=== PATIENT | male | born 1975 | race Caucasian/White ===

== ENCOUNTER 2021-01-27 15:32 | Inpatient (IN) | payer BC ==
[~2021-01-27] VITALS: Ht 182.9 cm; Wt 137.8 kg
[~2021-01-27 15:32] MED LIST: ATOR40TA59 PO; GLYB5TAB3 PO; INSU100I17 SQ; LISI20TA18 PO; METF10007 PO; OMEP20CA16 PO
[2021-01-27] MEDS ORDERED: IV NORMAL SALINE 1000ML BAG 1,000 ML IV SCH (16:00)
[2021-01-27] MEDS ORDERED: VANCOMYCIN PER PHARMACY MC ONE (16:00)
--- NOTE | 2021-01-27 16:05 | PHYS DOC ---
Past Medical History Past Medical History: Diabetes-Type II, High Cholesterol, Hypertension Past Surgical History: Cholecystectomy Alcohol Use: Occasionally Drug Use: None General Adult EDM: Chief Complaint: GROIN PAIN HPI: HPI: Patient is a 45 year old male who presents with 4 to 5 days of right upper thigh redness and burning type pain that is growing rapidly. He states he had some cellulitis on his right calf that he was on cephalexin for and he has been off of the cephalexin for the past week. He states that he just got rehired on at [employer] after being laid off for 2 years. He states in that time he had not been seen by a physician but had been vomiting insulin from [employer] and trying to keep track of his blood sugars. He states they have been running in the 300s. He states that he has an appointment now at [facility] this month to reestablish care. He has a history of diabetes, hypertension, high cholesterol and cholecystectomy. When he is laying still he states he has no pain but when he is up and walking he states it is painful. Patient denies chest pain, shortness of air, dizziness, headache, fever, chills, abdominal pain, nausea, vomiting, diarrhea, cough, numbness or tingling, focal weakness. He is Covid vaccinated. Review of Systems: Review of Systems: Constitutional: Denies fever or chills. [] Eyes: Denies change in visual acuity. [] HENT: Denies nasal congestion or sore throat. [] Respiratory: Denies cough or shortness of breath. [] Cardiovascular: Denies chest pain or edema. [] GI: Denies abdominal pain, nausea, vomiting, bloody stools or diarrhea. [] : Denies dysuria. [] Musculoskeletal: Denies back pain or joint pain. + Right upper leg pain [] Integument: Denies rash. + Right upper thigh cellulitis [] Neurologic: Denies headache, focal weakness or sensory changes. [] Endocrine: Denies polyuria or polydipsia. [] Lymphatic: Denies swollen glands. [] Psychiatric: Denies depression or anxiety. [] Heart Score: C/O Chest Pain: No Risk Factors: Risk Factors: DM, Current or recent (<one month) smoker, HTN, HLP, family history of CAD, obesity. Risk Scores: Score 0 - 3: 2.5% MACE over next 6 weeks - Discharge Home Score 4 - 6: 20.3% MACE over next 6 weeks - Admit for Clinical Observation Score 7 - 10: 72.7% MACE over next 6 weeks - Early Invasive Strategies Allergies: Allergies: Allergies Coded Allergies Type Severity Reaction Last Updated Verified Penicillins Allergy rash 05/25/13 Yes Physical Exam: PE: Constitutional: Well developed, well nourished, no acute distress, non-toxic appearance. [] HENT: Normocephalic, atraumatic, bilateral external ears normal, oropharynx moist, no oral exudates, nose normal. [] Eyes: PERRLA, EOMI, conjunctiva normal, no discharge. [] Neck: Normal range of motion, no tenderness, supple, no stridor. [] Cardiovascular:Heart rate regular rhythm, no murmur [] Lungs & Thorax: Bilateral breath sounds clear to auscultation [] Abdomen: Bowel sounds normal, soft, no tenderness, no masses, no pulsatile masses. [] Skin: Warm, dry, right upper thigh swelling and erythema, no rash. [] Back: No tenderness, no CVA tenderness. [] Extremities: Right upper thigh tenderness, no cyanosis, no clubbing, ROM intact, 1+ edema. [] Neurologic: Alert and oriented X 3, normal motor function, normal sensory function, no focal deficits noted. [] Psychologic: Affect normal, judgement normal, mood normal. [] EKG: EK and read by Dr Aquino as Sinus Rhythm and no STEMI Radiology/Procedures: Radiology/Procedures: [] Impression: [facility] [address] [place] [address] IMAGING REPORT Signed PATIENT: SACHI LEBLANC ACCOUNT: [id number] : 1975 LOCATION: [facility] AGE: 45 SEX: M EXAM STATUS: ADM IN ORD. PHYSICIAN: ZINA SHORT APRN REASON: TACHYCARDIA PROCEDURE: PORTABLE CHEST 1V Exam: Chest one view INDICATION: Tachycardia TECHNIQUE: Frontal view of the chest Comparisons: 05/25/2013 FINDINGS: The cardiomediastinal silhouette and pulmonary vessels are within normal limits. The lung and pleural spaces are clear. IMPRESSION: No acute cardiopulmonary process. Electronically signed by: Ryan Prakash MD (01/27/2021 6:36 PM) [facility] DICTATED and SIGNED BY: RYAN PRAKASH MD DATE: 01/27/21 [id number] [facility] [address] [place] [address] IMAGING REPORT Signed PATIENT: SACHI LEBLANC ACCOUNT: [id number] : 1975 LOCATION: [address] [place] [address] AGE: 45 SEX: M EXAM STATUS: ADM IN ORD. PHYSICIAN: ZINA SHORT APRN REASON: swelling, pain PROCEDURE: VENOUS LOWER EXT BILATERAL Bilateral lower extremity venous duplex study 01/27/2021 Clinical History: Right groin lump. Redness upper thigh.. Technique: Using a combination of real time ultrasound imaging and color-flow and pulse Doppler imaging techniques along with graded compression and augmentation, duplex evaluation of the deep venous system of the both lower extremities was performed. Multiple images were obtained. Findings: There is no sonographic evidence of deep venous thrombosis involving the visualized deep venous structures of either lower extremity. Enlarged lymph nodes are seen in the right inguinal region which measure 1.3 to 2.7 cm in size. This likely represents a lymphadenitis. IMPRESSION: 1. There is no sonographic evidence of deep venous thrombosis involving the visualized deep venous structures of either lower extremity. 2. Enlarged right inguinal lymph nodes are seen which likely reflects a lymphadenitis. Electronically signed by: Piter Benitez MD (01/27/2021 6:26 PM) [id number] DICTATED and SIGNED BY: PITER BENITEZ MD DATE: 01/27/21 [id number] Course & Med Decision Making: Course & Med Decision Making Pertinent Labs and Imaging studies reviewed. (See chart for details) See HPI. Alert and oriented x4. Ambulatory with steady gait. Skin pink warm and dry. Pedal pulses are present. Cap refill less than 2 seconds. Lungs are clear in upper lobes and diminished in lower lobes. Large area of right medial upper thigh that covers half of the dorsal thigh and around to the posterior half of thigh redness and induration. Tenderness and hot to touch. [] Dragon Disclaimer: Dragon Disclaimer: This electronic medical record was generated, in whole or in part, using a voice recognition dictation system. Departure Departure Impression: Primary Impression: Cellulitis Qualified Codes: L03.115 - Cellulitis of right lower limb Additional Impression: Hyperglycemia Disposition: 09 ADMITTED INPATIENT Admitting Physician: KARTHIK Condition: STABLE Referrals: JEREMY MARTINEZ MD (PCP) ZINA SHORT APRN Jan 27, 2021 16:05
[2021-01-27] MEDS ORDERED: VANCOMYCIN 2 GM in IV NORMAL SALINE 500ML BAG 500 ML IV ONE (16:30)
[2021-01-27 16:33] LABS: BASO # 0.1 x10^3/uL (0.0-0.2); BASO % 0 % (0-3); EOS # 0.1 x10^3/uL (0.0-0.7); EOS % 0 % (0-3); HEMATOCRIT 36.6 % (39.0-53.0); HEMOGLOBIN 12.5 g/dL (13.0-17.5); LYMPH # 1.9 x10^3/uL (1.0-4.8); LYMPH % 9 % (24-48); MEAN CORPUSCULAR HEMOGLOBIN 31 pg (25-35); MEAN CORPUSCULAR HGB CONC 34 g/dL (31-37); MEAN CORPUSCULAR VOLUME 89 fL (79-100); MONO # 1.4 x10^3/uL (0.0-1.1); MONO % 6 % (0-9); NEUT % 84 % (31-73); PLATELET COUNT 314 x10^3/uL (140-400); RED CELL DISTRIBUTION WIDTH 12.4 % (11.5-14.5); WHITE BLOOD COUNT 21.4 x10^3/uL (4.0-11.0)
[2021-01-27 16:46] LABS: CALCIUM 8.8 mg/dL (8.5-10.1); CREATININE 1.3 mg/dL (0.7-1.3); GFR 59.7; POTASSIUM 5.1 mmol/L (3.5-5.1)
[2021-01-27 16:54] LABS: % BANDS 4 % (0-9); % BASOS 1 % (0-3); % LYMPHS 12 % (24-48); % MONOS 3 % (0-10); % SEGS 80 % (35-66); ALBUMIN 2.9 g/dL (3.4-5.0); ALBUMIN/GLOBULIN RATIO 0.7 (1.0-1.7); PLT ESTIMATE ADEQUATE (ADEQUATE); TOTAL BILIRUBIN 0.4 mg/dL (0.2-1.0); TOTAL PROTEIN 6.9 g/dL (6.4-8.2)
[2021-01-27] MEDS ORDERED: INSULIN REGULAR 100 UNIT/ML 3ML VIAL. IV ONE (17:00)
[2021-01-27 17:07] LABS: C-REACTIVE PROTEIN 322.9 mg/L (0-3.3)
[2021-01-27 17:12] LABS: BASE EXCESS ABG 3 mmol/L (-3-3); HCO3 ABG 26 mmol/L (21-28); PCO2 ABG 35 mmHg (35-46); PO2 ABG 71 mmHg (75-108); SAT O2 ABG 95 % (92-99)
[2021-01-27 17:13] LABS: FIO2 ABG 21%
--- NOTE | 2021-01-27 17:27 | EKG ---
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
[2021-01-27] MEDS ORDERED: ACETAMINOPHEN 325 MG TABLET. PO PRN (17:30)
[2021-01-27] MEDS ORDERED: ONDANSETRON PF 4 MG/2 ML VIAL. IVP PRN (17:30)
--- NOTE | 2021-01-27 18:29 | RAD ---
Bilateral lower extremity venous duplex study 01/27/2021 Clinical History: Right groin lump. Redness upper thigh.. Technique: Using a combination of real time ultrasound imaging and color-flow and pulse Doppler imagi ng techniques along with graded compression and augmentation, duplex evaluation of the deep venous sy stem of the both lower extremities was performed. Multiple images were obtained. Findings: There is no sonographic evidence of deep venous thrombosis involving the visualized deep ve nous structures of either lower extremity. Enlarged lymph nodes are seen in the right inguinal region which measure 1.3 to 2.7 cm in size. This likely represents a lymphadenitis. IMPRESSION: 1. There is no sonographic evidence of deep venous thrombosis involving the visualized deep venous st ructures of either lower extremity. 2. Enlarged right inguinal lymph nodes are seen which likely reflects a lymphadenitis. Electronically signed by: Piter Benitez MD (01/27/2021 6:26 PM) [id number]
[2021-01-27] MEDS: fentaNYL PF VIAL 100 MCG/2 ML VIAL IVP PRN ×2 (18:34→21:14)
--- NOTE | 2021-01-27 18:38 | RAD ---
Exam: Chest one view INDICATION: Tachycardia TECHNIQUE: Frontal view of the chest Comparisons: 05/25/2013 FINDINGS: The cardiomediastinal silhouette and pulmonary vessels are within normal limits. The lung and pleural spaces are clear. IMPRESSION: No acute cardiopulmonary process. Electronically signed by: Ryan Byrne MD (01/27/2021 6:36 PM) KYE
--- NOTE | 2021-01-27 20:27 | NUR ---
The patient, SACHI LEBLANC, 45 y/o, M admitted by MARCIAL CLANCY MD, was given written information regarding hospital policies, unit procedures and contact persons. Valuables were checked and left with him.
[2021-01-27 20:41] VITALS: BP 157/70
[2021-01-27] MEDS ORDERED: DEXTROSE 50% 25 GM / 50ML DISP.SYRIN. IV PRN (20:45)
[2021-01-27] MEDS: INSULIN LISPRO 300 UNITS/3 ML VIAL. SQ SCH (21:13)
[2021-01-27 23:16] VITALS: BP 144/65
[2021-01-27] MEDS ORDERED: VANCOMYCIN PER PHARMACY MC PRN (23:45)
--- NOTE | 2021-01-28 01:13 | EKG ---
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
--- NOTE | 2021-01-28 01:17 | NUR ---
Pharmacy Vancomycin Dosing Note S:Consulted to monitor and dose vancomycin started 01/27/21. O:SACHI LEBLANC is a 45 year old M with Cellulitis . Height: 6 feet, 0 inches Weight: 137.6 kg [place] Body Weight: 77.60 Adjusted Body Weight: 101.60 Dosing Weight: Actual Other Antibiotics: LABS: Last BUN: 12 Last Creatinine: 1.3 Creatinine Clearance: >100 mL/min Last WBC: 21.4 Last Procalcitonin: - Tmax (past 24 hours): 99.7 Microbiology: 01/27 BCX PENDING I/O: Drug Levels: Last level: on at Last dose given 01/27/21 at 1630 Vancomycin Dosing: Loading Dose: x1 Dosing Weight: Actual Target Trough: 10-20 A: Based on: WEIGHT, RENAL FUNCTION AND INFECTION TYPE/SEVERITY (CELLULITIS) P: 1. INITIATE Vancomycin 2000 mg IV q12h 2. Follow up Trough level on 01/29/21 at 1630 3. Pharmacy will continue to monitor, follow and adjust therapy as needed. [facility], 01/28/21 0117
[2021-01-28] MEDS: fentaNYL PF VIAL 100 MCG/2 ML VIAL IVP PRN ×7 (01:32→12:32)
[2021-01-28 03:07] VITALS: BP 169/58
[2021-01-28] MEDS ORDERED: VANCOMYCIN 2 GM in IV NORMAL SALINE 500ML BAG 500 ML IV SCH (04:30)
[2021-01-28 07:00] VITALS: BP 134/72
[2021-01-28] MEDS: INSULIN LISPRO 300 UNITS/3 ML VIAL. SQ SCH ×6 (07:30→20:31)
[2021-01-28] MEDS: LACTOBACILLUS RHAMNOSUS GG 1 CAPSULE. PO SCH ×2 (08:30→20:01)
--- NOTE | 2021-01-28 08:31 | CONS ---
DATE OF CONSULTATION: 01/28/2021 REQUESTING PHYSICIAN: Dr. Rushing. REASON FOR CONSULTATION: Right leg cellulitis and right inguinal mass. HISTORY OF PRESENT ILLNESS: This is a 45-year-old gentleman with history of diabetes who has had cellulitis as he was diagnosed in the urgent care about a week or two ago. He had redness in the leg and the calf. The patient says at that time he received Keflex and the redness improved, but he started having pain in the right inguinal area and he felt like it was getting better, but then he played with his kid, he fell and was wrestling and the pain got worse, hence he decided to come in. The patient is noted to have low-grade fever and leukocytosis. The patient has been started on vancomycin and consult has been requested. The patient denies any nausea, vomiting, diarrhea, chest pain, shortness of breath, abdominal pain, urinary symptoms or bowel symptoms. Denies any headache or visual symptoms. PAST MEDICAL HISTORY: Positive for diabetes mellitus, hypertension, hyperlipidemia, obesity, glaucoma, gastroesophageal reflux disease and joint replacement done, diabetes. SOCIAL HISTORY: Positive for smoking. No alcohol use or drug use. ALLERGIES: LISTED ALLERGIC TO PENICILLIN A CHILD. He does not know what happened, but admits to have taken Augmentin and amoxicillin without any problem. REVIEW OF SYSTEMS: As in HPI. All other systems reviewed are negative. CURRENT MEDICATIONS: Reviewed. PHYSICAL EXAMINATION: GENERAL: Alert, oriented gentleman, not in distress. VITAL SIGNS: Temperature max is 99.7, pulse 86, respirations 18, blood pressure 134/72. HEENT: Both pupils are round and reacting. No conjunctival lesion, no lesion in the mouth. NECK: Supple, no JVP, no lymphadenopathy. LUNGS: Clear. HEART: S1, S2 regular. ABDOMEN: Soft, nontender, no organomegaly. EXTREMITIES: Right lower extremity, very faint redness present, almost gone. He does have a large lump into the right inguinal area, which is tender. There is no redness there. There is no open area. NEUROLOGIC: The patient is alert, awake, and appropriate. No focal neurologic deficit. LABORATORY DATA: White count is 21.4. Sed rate is 103. BUN and creatinine is normal. Blood sugar has been high. CRP is 322. Acetone negative. COVID negative. X-ray of the chest is unremarkable. Lower extremity ultrasound done which was negative for DVT. Enlarged right inguinal lymph nodes are seen. IMPRESSION: 1. Right lower extremity cellulitis. 2. Right inguinal lymphadenopathy. This lump is too large for this lymph node to be there, although ultrasound suggests that his lymph node, we will treat as it is. 3. Diabetes. 4. Hypertension. 5. Leukocytosis. 6. Fever. RECOMMENDATIONS: Recommend change vancomycin to Rocephin. Supportive care. We will follow as the course of the illness. Might need further testing if it does not improve. Thank you very much, Dr. Rushing, for giving me opportunity to participate in this patient's care. MAR DR: Rd TID: [id number]
[2021-01-28] MEDS: LINEZOLID 600 MG TABLET PO SCH ×2 (08:43→20:01)
[2021-01-28] MEDS ORDERED: INSULIN LISPRO 300 UNITS/3 ML VIAL. SQ ONE (08:45)
[2021-01-28] MEDS: cefTRIAXone IV Push 2 GM VIAL. IVP SCH (09:53)
[2021-01-28 11:23] VITALS: BP 143/79
[2021-01-28] MEDS ORDERED: DEXTROSE 50% 25 GM / 50ML DISP.SYRIN. IV PRN (11:30)
--- NOTE | 2021-01-28 11:32 | NUR ---
Nurse's note: The patient had nausea and vomiting while ceftriaxone was being administered. He did not complain of shortness of breath, pruritus or weakness. This nurse discussed with the patient that the symptoms could be a side effect of the medicine. Dr. Chalo Tucker was informed of the reaction. Plan to give premedication before administering the next dose.
--- NOTE | 2021-01-28 14:01 | PDOC1 ---
History and Physical Date of Service: DOS: DATE: 01/28/21 TIME: 13:52 Chief Complaint: Problems: (1) Type 2 diabetes mellitus (2) Cellulitis (3) Hyperglycemia Chief Complain: Right lower extremity swelling History of Present Illness: HPI: Patient is a 45-year-old white male who presented to the emergency room overnight to right groin and thigh pain and erythema. 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 About 2 weeks ago noticed pain and redness in his right lower extremity. He was also having cough around the then. Went to an urgent care was diagnosed with cellulitis and treated with Keflex. Negative for Covid and influenza during that visit according to the patient. Initially improved with the Keflex. However about 3 to 5 days ago he started having swelling in his right groin. It worsened over the next few days and he was in the emergency room overnight. He was diagnosed with cellulitis and started on IV antibiotics. Patient has a history of type 2 diabetes. Due to losing his insurance he has not regularly seen a doctor over the past 2 years. He would by [facility] from [facility] to try to keep up the sugars but said they still frequently ran in the 300s. Does endorse neuropathy. Does perform foot checks and no wounds that he has ever noticed. Past Medical/Surgical History: PMH/PSH: Diabetes type 2, hypertension, hyperlipidemia Allergies: Allergies: Coded Allergies: Penicillins (Verified Allergy, Intermediate, rash, 01/27/21) Family History: Family History: Noncontributory Social History: Social History: Denies alcohol tobacco or drug use Current Medications: Current Medications Current Medications Vancomycin HCl (Vanco Per Pharmacy) 1 each 1X ONCE MC ; Start 01/27/21 at 16:00; Stop 01/27/21 at 16:01; Status DC Sodium Chloride 1,000 ml @ 1,000 mls/hr Q1H IV Last administered on 01/27/21at 16:28; Start 01/27/21 at 16:00; Stop 01/27/21 at 16:59; Status DC Vancomycin HCl 2 gm/Sodium Chloride 500 ml @ 250 mls/hr 1X ONCE IV Last administered on 01/27/21at 16:28; Start 01/27/21 at 16:30; Stop 01/27/21 at 18:29; Status DC Insulin Human Regular (HumuLIN R VIAL) 10 unit 1X ONCE IV Last administered on 01/27/21at 17:25; Start 01/27/21 at 17:00; Stop 01/27/21 at 17:09; Status DC Ondansetron HCl (Zofran) 4 mg PRN Q8HRS PRN IVP NAUSEA/VOMITING; Start 01/27/21 at 17:30; Stop 01/28/21 at 17:29 Fentanyl Citrate (Fentanyl 2ml Vial) 50 mcg PRN Q1HR PRN IVP PAIN Last administered on 01/28/21at 12:32; Start 01/27/21 at 17:30; Stop 01/28/21 at 13:41; Status DC Acetaminophen (Tylenol) 650 mg PRN Q4HRS PRN PO FEVER > 100.3'F; Start 01/27/21 at 17:30; Stop 01/28/21 at 17:29 Insulin Human Lispro (HumaLOG) 0-5 UNITS QIDACHS SQ Last administered on 01/27/21at 21:13; Start 01/27/21 at 21:00; Stop 01/28/21 at 11:22; Status DC Dextrose (Dextrose 50%-Water Syringe) 12.5 gm PRN Q15MIN PRN IV SEE COMMENTS; Start 01/27/21 at 20:45; Stop 01/28/21 at 11:22; Status DC Vancomycin HCl 2 gm/Sodium Chloride 500 ml @ 250 mls/hr Q12H IV Last administered on 01/28/21at 03:27; Start 01/28/21 at 04:30; Stop 01/28/21 at 08:16; Status DC Vancomycin HCl (Vancomycin Trough Level) 1 each 1X ONCE MC ; Start 01/29/21 at 16:00; Stop 01/29/21 at 16:01; Status Cancel Vancomycin HCl (Vanco Per Pharmacy) 1 each PRN DAILY PRN MC SEE COMMENTS Last administered on 01/28/21at 01:16; Start 01/27/21 at 23:45; Stop 01/28/21 at 08:21; Status DC Lactobacillus Rhamnosus (Culturelle) 1 cap BID PO Last administered on 01/28/21at 08:30; Start 01/28/21 at 09:00 Ceftriaxone Sodium (Rocephin) 2 gm Q24H IVP Last administered on 01/28/21at 09:53; Start 01/28/21 at 09:00 Linezolid (Zyvox) 600 mg BID PO Last administered on 01/28/21at 08:43; Start 01/28/21 at 09:00 Insulin Human Lispro (HumaLOG) 10 units 1X ONCE SQ Last administered on 01/28/21at 08:48; Start 01/28/21 at 08:45; Stop 01/28/21 at 08:46; Status DC Atorvastatin Calcium (Lipitor) 40 mg HS PO ; Start 01/28/21 at 21:00 Lisinopril (Prinivil) 20 mg DAILY PO ; Start 01/29/21 at 09:00 Pantoprazole Sodium (Protonix) 40 mg DAILYAC PO ; Start 01/29/21 at 07:30 Insulin Glargine (Lantus Syringe) 20 unit QHS SQ ; Start 01/28/21 at 21:00 Insulin Human Lispro (HumaLOG) 0-9 UNITS TIDWMEALS SQ Last administered on 01/28/21at 12:26; Start 01/28/21 at 12:00 Dextrose (Dextrose 50%-Water Syringe) 12.5 gm PRN Q15MIN PRN IV SEE COMMENTS; Start 01/28/21 at 11:30 Insulin Human Lispro (HumaLOG) 10 units TIDWMEALS SQ Last administered on 01/28/21at 12:25; Start 01/28/21 at 12:00 Active Scripts Active Reported Omeprazole 20 Mg Capsule.dr 20 Mg PO DAILY07 Atorvastatin Calcium 40 Mg Tablet 40 Mg PO HS Lisinopril 20 Mg Tablet 20 Mg PO DAILY Metformin Hcl 1,000 Mg Tablet 1,000 Mg PO BID Glyburide 5 Mg Tablet 4 Mg PO DAILY08 Novolog Flexpen (Insulin Aspart) 100 Unit/1 Ml Insuln.pen 100 Unit SQ BIDBFRMEAL PRN Novolog Flexpen (Insulin Aspart) 100 Unit/1 Ml Insuln.pen 100 Unit SQ BIDBFRMEAL PRN ROS: Review of Systems Review of System Negative unless noted in HPI Physical Exam: Vital Signs: Vital Signs Date Time Temp Pulse Resp B/P (MAP) Pulse Ox O2 Delivery O2 Flow Rate FiO2 01/28/21 13:10 19 94 Room Air 01/28/21 11:23 97.9 80 143/79 (100) 97.9 Physcial Exam: GEN: No apparent distress. Alert and oriented HEENT: Normal cephalic, atraumatic, external auditory canals are patent EYES: Extraocular muscles are intact, pupil are equally round and reactive to light and accommodation MUSCULOSKELETAL: Well developed , well nourished, good range of motion ENDOCRINE: No thyromegaly was palpated LYMPHATICS: No cervical chain or axillary nodes were noted HEMATOPOIETIC: No bruising NECK: Supple, no JVD, no thyromegaly was noted LUNGS: Clear to auscultation in all lung [place] without rhonchi or wheezing HEART: RRR, S!, S2 present. Peripheral pulses intact, no obvious murmurs noted ABDOMEN: Soft, nontender. Positive bowel sounds, no organomegaly, normal bowel sounds EXTREMITIES: Right groin with large tender immobile mass, very tender to palpation erythematous NEUROLOGIC: Normal speech and tone. A&O x 3, moves all extremities, no obvious focal deficits PSYCHIATRIC: Normal affect, normal mood. Stable SKIN: No ulcerations or rashes, good skin turgor, no jaundice VASCULAR: Good capillary refill, neurovascular bundle appears to be intact Labs: Labs: Laboratory Tests Test 01/27/21 16:13 01/27/21 17:10 01/27/21 17:25 01/27/21 20:35 White Blood Count 21.4 x10^3/uL (4.0-11.0) Red Blood Count 4.10 x10^6/uL (4.30-5.70) Hemoglobin 12.5 g/dL (13.0-17.5) Hematocrit 36.6 % (39.0-53.0) Mean Corpuscular Volume 89 fL (79-100) Mean Corpuscular Hemoglobin 31 pg (25-35) Mean Corpuscular Hemoglobin Concent 34 g/dL (31-37) Red Cell Distribution Width 12.4 % (11.5-14.5) Platelet Count 314 x10^3/uL (140-400) Neutrophils (%) (Auto) 84 % (31-73) Lymphocytes (%) (Auto) 9 % (24-48) Monocytes (%) (Auto) 6 % (0-9) Eosinophils (%) (Auto) 0 % (0-3) Basophils (%) (Auto) 0 % (0-3) Neutrophils # (Auto) 18.0 x10^3/uL (1.8-7.7) Lymphocytes # (Auto) 1.9 x10^3/uL (1.0-4.8) Monocytes # (Auto) 1.4 x10^3/uL (0.0-1.1) Eosinophils # (Auto) 0.1 x10^3/uL (0.0-0.7) Basophils # (Auto) 0.1 x10^3/uL (0.0-0.2) Segmented Neutrophils % 80 % (35-66) Band Neutrophils % 4 % (0-9) Lymphocytes % 12 % (24-48) Monocytes % 3 % (0-10) Basophils % 1 % (0-3) Platelet Estimate Adequate (ADEQUATE) Erythrocyte Sedimentation Rate 103 (0-15) Sodium Level 132 mmol/L (136-145) Potassium Level 5.1 mmol/L (3.5-5.1) Chloride Level 94 mmol/L (98-107) Carbon Dioxide Level 26 mmol/L (21-32) Anion Gap 12 (6-14) Blood Urea Nitrogen 12 mg/dL (8-26) Creatinine 1.3 mg/dL (0.7-1.3) Estimated GFR (Cockcroft-Gault) 59.7 BUN/Creatinine Ratio 9 (6-20) Glucose Level 458 mg/dL (70-99) Lactic Acid Level 1.4 mmol/L (0.4-2.0) Calcium Level 8.8 mg/dL (8.5-10.1) Total Bilirubin 0.4 mg/dL (0.2-1.0) Aspartate Amino Transf (AST/SGOT) 14 U/L (15-37) Alanine Aminotransferase (ALT/SGPT) 23 U/L (16-63) Alkaline Phosphatase 120 U/L (46-116) Troponin I Quantitative < 0.017 ng/mL (0.000-0.055) C-Reactive Protein, Quantitative 322.9 mg/L (0-3.3) Total Protein 6.9 g/dL (6.4-8.2) Albumin 2.9 g/dL (3.4-5.0) Albumin/Globulin Ratio 0.7 (1.0-1.7) Acetone Level Neg (NEG) O2 Saturation 95 % (92-99) Arterial Blood pH 7.49 (7.35-7.45) Arterial Blood pCO2 at Patient Temp 35 mmHg (35-46) Arterial Blood pO2 at Patient Temp 71 mmHg (75-108) Arterial Blood HCO3 26 mmol/L (21-28) Arterial Blood Base Excess 3 mmol/L (-3-3) FiO2 21% SARS-CoV-2 RNA (DULCE) Negative (Negative) SARS-CoV-2 Antigen (Rapid) Negative (NEGATIVE) Glucose (Fingerstick) 321 mg/dL (70-99) Test 01/28/21 07:29 01/28/21 10:53 Glucose (Fingerstick) 373 mg/dL (70-99) 339 mg/dL (70-99) Laboratory Tests Test 01/27/21 16:13 01/27/21 17:10 01/27/21 17:25 01/27/21 20:35 White Blood Count 21.4 x10^3/uL (4.0-11.0) Red Blood Count 4.10 x10^6/uL (4.30-5.70) Hemoglobin 12.5 g/dL (13.0-17.5) Hematocrit 36.6 % (39.0-53.0) Mean Corpuscular Volume 89 fL (79-100) Mean Corpuscular Hemoglobin 31 pg (25-35) Mean Corpuscular Hemoglobin Concent 34 g/dL (31-37) Red Cell Distribution Width 12.4 % (11.5-14.5) Platelet Count 314 x10^3/uL (140-400) Neutrophils (%) (Auto) 84 % (31-73) Lymphocytes (%) (Auto) 9 % (24-48) Monocytes (%) (Auto) 6 % (0-9) Eosinophils (%) (Auto) 0 % (0-3) Basophils (%) (Auto) 0 % (0-3) Neutrophils # (Auto) 18.0 x10^3/uL (1.8-7.7) Lymphocytes # (Auto) 1.9 x10^3/uL (1.0-4.8) Monocytes # (Auto) 1.4 x10^3/uL (0.0-1.1) Eosinophils # (Auto) 0.1 x10^3/uL (0.0-0.7) Basophils # (Auto) 0.1 x10^3/uL (0.0-0.2) Segmented Neutrophils % 80 % (35-66) Band Neutrophils % 4 % (0-9) Lymphocytes % 12 % (24-48) Monocytes % 3 % (0-10) Basophils % 1 % (0-3) Platelet Estimate Adequate (ADEQUATE) Erythrocyte Sedimentation Rate 103 (0-15) Sodium Level 132 mmol/L (136-145) Potassium Level 5.1 mmol/L (3.5-5.1) Chloride Level 94 mmol/L (98-107) Carbon Dioxide Level 26 mmol/L (21-32) Anion Gap 12 (6-14) Blood Urea Nitrogen 12 mg/dL (8-26) Creatinine 1.3 mg/dL (0.7-1.3) Estimated GFR (Cockcroft-Gault) 59.7 BUN/Creatinine Ratio 9 (6-20) Glucose Level 458 mg/dL (70-99) Lactic Acid Level 1.4 mmol/L (0.4-2.0) Calcium Level 8.8 mg/dL (8.5-10.1) Total Bilirubin 0.4 mg/dL (0.2-1.0) Aspartate Amino Transf (AST/SGOT) 14 U/L (15-37) Alanine Aminotransferase (ALT/SGPT) 23 U/L (16-63) Alkaline Phosphatase 120 U/L (46-116) Troponin I Quantitative < 0.017 ng/mL (0.000-0.055) C-Reactive Protein, Quantitative 322.9 mg/L (0-3.3) Total Protein 6.9 g/dL (6.4-8.2) Albumin 2.9 g/dL (3.4-5.0) Albumin/Globulin Ratio 0.7 (1.0-1.7) Acetone Level Neg (NEG) O2 Saturation 95 % (92-99) Arterial Blood pH 7.49 (7.35-7.45) Arterial Blood pCO2 at Patient Temp 35 mmHg (35-46) Arterial Blood pO2 at Patient Temp 71 mmHg (75-108) Arterial Blood HCO3 26 mmol/L (21-28) Arterial Blood Base Excess 3 mmol/L (-3-3) FiO2 21% SARS-CoV-2 RNA (DULCE) Negative (Negative) SARS-CoV-2 Antigen (Rapid) Negative (NEGATIVE) Glucose (Fingerstick) 321 mg/dL (70-99) Test 01/28/21 07:29 01/28/21 10:53 Glucose (Fingerstick) 373 mg/dL (70-99) 339 mg/dL (70-99) Assessment/Plan Assessment/Plan Right lower extremity cellulitis, type 2 diabetes with long-term insulin use, hy pertension, hyperlipidemia -Patient labs and presentation consistent with bacterial cellulitis -Duplex in emergency room negative for clot -Patient started on vancomycin emergency room; infectious disease consulted recommending Rocephin and Zyvox; blood cultures pending -Foot check performed on patient does not show any wounds, unknown known source of infection -Starting patient on long-acting, sliding scale and premeal insulin. -He is due to establish with a PCP next week -Home medications resumed as indicated -DVT prophylaxis Justifications for Admission Other Justification BOO BAL MD Jan 28, 2021 14:01
[2021-01-28 15:24] VITALS: BP 155/73
[2021-01-28] MEDS ORDERED: MORPHINE SULFATE 2 MG/ML INJ. IVP ONE (16:15)
[2021-01-28] MEDS ORDERED: oxyCODONE/APAP 5/325 1 TAB TABLET PO PRN (16:15)
[2021-01-28] MEDS: oxyCODONE/APAP 5/325 1 TAB TABLET PO PRN ×2 (17:17→22:08)
[2021-01-28 19:00] VITALS: BP 172/81
[2021-01-28] MEDS: ATORVASTATIN CALCIUM 40 MG TABLET. PO SCH (20:01)
[2021-01-28] MEDS ORDERED: INSULIN GLARGINE SYRINGE. SQ SCH (21:00)
[2021-01-28 23:00] VITALS: BP 179/79
[2021-01-29 03:00] VITALS: BP 155/83
[2021-01-29] MEDS: oxyCODONE/APAP 5/325 1 TAB TABLET PO PRN ×4 (04:29→20:58)
[2021-01-29] MEDS: PANTOPRAZOLE 40 MG TABLET.DR. PO SCH (05:20)
[2021-01-29 07:00] VITALS: BP 133/79
[2021-01-29 08:10] LABS: CREATININE 0.9 mg/dL (0.7-1.3); GFR 91.3
[2021-01-29] MEDS ORDERED: LISINOPRIL 20 MG TABLET PO SCH ×2 (09:00→15:45)
--- NOTE | 2021-01-29 09:07 | PDOC ---
Infectious Disease Note Subjective Subjective Patient is feeling better ROS ROS Nausea vomiting diarrhea. Leg pain is present but the swelling has gone down Vital Sign Vital Signs Vital Signs Date Time Temp Pulse Resp B/P (MAP) Pulse Ox O2 Delivery O2 Flow Rate FiO2 01/29/21 07:00 97.6 71 20 133/79 (97) 95 Room Air 97.6 Physical Exam PHYSICAL EXAM GENERAL: Alert, oriented gentleman, not in distress. VITAL SIGNS: Temperature max is 99.7, pulse 86, respirations 18, blood pressure 134/72. HEENT: Both pupils are round and reacting. No conjunctival lesion, no lesion in the mouth. NECK: Supple, no JVP, no lymphadenopathy. LUNGS: Clear. HEART: S1, S2 regular. ABDOMEN: Soft, nontender, no organomegaly. EXTREMITIES: Right lower extremity, very faint redness present, almost gone. He does have a large lump into the right inguinal area, which is tender. There is no redness there. There is no open area. NEUROLOGIC: The patient is alert, awake, and appropriate. No focal neurologic deficit. Labs Lab Laboratory Tests Test 01/28/21 10:53 01/28/21 16:21 01/28/21 20:12 01/29/21 06:50 Glucose (Fingerstick) 339 mg/dL (70-99) 342 mg/dL (70-99) 383 mg/dL (70-99) Creatinine 0.9 mg/dL (0.7-1.3) Estimated GFR (Cockcroft-Gault) 91.3 Test 01/29/21 07:20 Glucose (Fingerstick) 317 mg/dL (70-99) Micro Microbiology 01/27/21 Blood Culture - Preliminary, Resulted NO GROWTH AFTER 1 DAY Objective Assessment IMPRESSION: 1. Right lower extremity cellulitis. 2. Right inguinal lymphadenopathy. This lump is too large for this lymph node to be there, although ultrasound suggests that his lymph node, we will treat as it is. 3. Diabetes. 4. Hypertension. 5. Leukocytosis. 6. Fever. Plan Plan of Care Continue antibiotics Check CBC PT OT ANGELINE CHAMBERS MD Jan 29, 2021 09:07
[2021-01-29] MEDS: LACTOBACILLUS RHAMNOSUS GG 1 CAPSULE. PO SCH ×2 (09:12→20:57)
[2021-01-29] MEDS: LINEZOLID 600 MG TABLET PO SCH ×2 (09:12→20:57)
[2021-01-29] MEDS: cefTRIAXone IV Push 2 GM VIAL. IVP SCH (09:13)
[2021-01-29 09:19] LABS: BASO % 0 % (0-3); EOS # 0.2 x10^3/uL (0.0-0.7); EOS % 2 % (0-3); HEMATOCRIT 34.8 % (39.0-53.0); HEMOGLOBIN 11.8 g/dL (13.0-17.5); LYMPH # 2.6 x10^3/uL (1.0-4.8); LYMPH % 18 % (24-48); MEAN CORPUSCULAR HEMOGLOBIN 31 pg (25-35); MEAN CORPUSCULAR HGB CONC 34 g/dL (31-37); MEAN CORPUSCULAR VOLUME 91 fL (79-100); MONO # 1.1 x10^3/uL (0.0-1.1); MONO % 7 % (0-9); NEUT # 10.4 x10^3/uL (1.8-7.7); NEUT % 73 % (31-73); PLATELET COUNT 301 x10^3/uL (140-400); RED BLOOD COUNT 3.84 x10^6/uL (4.30-5.70); RED CELL DISTRIBUTION WIDTH 12.7 % (11.5-14.5); WHITE BLOOD COUNT 14.4 x10^3/uL (4.0-11.0)
[2021-01-29] MEDS: INSULIN LISPRO 300 UNITS/3 ML VIAL. SQ SCH ×5 (09:27→16:56)
[2021-01-29 11:00] VITALS: BP 186/90
--- NOTE | 2021-01-29 11:09 | NUR ---
SW following. Discussed with RN. Pt from home with family, room air, ada diet. COVID-19 negative. ID following - pt currently on IV abx. RN advised no SW needs at this time SW will continue to follow.
[2021-01-29 15:00] VITALS: BP 139/86
[2021-01-29] MEDS ORDERED: LISINOPRIL 20 MG TABLET PO ONE (16:15)
--- NOTE | 2021-01-29 16:19 | PDOC ---
[employer] PROGRESS NOTE Date of Service DOS: DATE: 01/29/21 TIME: 16:17 History of Present Illness History of Present Illness Patient is a 45-year-old white male who presented to the emergency room overnight to right groin and thigh pain and erythema. 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 About 2 weeks ago noticed pain and redness in his right lower extremity. He was also having cough around the then. Went to an urgent care was diagnosed with cellulitis and treated with Keflex. Negative for Covid and influenza during that visit according to the patient. Initially improved with the Keflex. However about 3 to 5 days ago he started having swelling in his right groin. It worsened over the next few days and he was in the emergency room overnight. He was diagnosed with cellulitis and started on IV antibiotics. Patient has a history of type 2 diabetes. Due to losing his insurance he has not regularly seen a doctor over the past 2 years. He would by NPH from [facility] to try to keep up the sugars but said they still frequently ran in the 300s. Does endorse neuropathy. Does perform foot checks and no wounds that he has ever noticed. 01/29 Patient evaluated at bedside. Still complaining of some pain in his right groin but says it is improving. Swelling improved as well. Tolerating antibiotics bedside chair continuing for now. Infectious disease following. Transition to oral antibiotics when able. Patient agreeable with plan. Vitals/I&O Vitals/I&O: Vital Signs Date Time Temp Pulse Resp B/P (MAP) Pulse Ox O2 Delivery O2 Flow Rate FiO2 01/29/21 16:11 84 186/90 01/29/21 11:00 97.9 20 95 Room Air 97.9 I & O 01/28/21 01/28/21 01/29/21 15:00 23:00 07:00 Intake Total 120 ml 480 ml 500 ml Balance 120 ml 480 ml 500 ml Physical Exam Physical Exam: GENERAL: Alert, oriented gentleman, not in distress. VITAL SIGNS: Temperature max is 99.7, pulse 86, respirations 18, blood pressure 134/72. HEENT: Both pupils are round and reacting. No conjunctival lesion, no lesion in the mouth. NECK: Supple, no JVP, no lymphadenopathy. LUNGS: Clear. HEART: S1, S2 regular. ABDOMEN: Soft, nontender, no organomegaly. EXTREMITIES: Right lower extremity, very faint redness present, almost gone. He does have a large lump into the right inguinal area, which is tender. There is no redness there. There is no open area. NEUROLOGIC: The patient is alert, awake, and appropriate. No focal neurologic deficit. General: Alert, Oriented X3, Cooperative Heart: Regular rate, Normal S1, Normal S2 Lungs: Clear Abdomen: Normal bowel sounds, Soft Extremities: Other (Right groin with large tender immobile mass, very tender to palpation erythematous) Skin: No rashes, No significant lesion Labs Labs: Laboratory Tests Test 01/28/21 16:21 01/28/21 20:12 01/29/21 06:50 01/29/21 07:20 Glucose (Fingerstick) 342 mg/dL (70-99) 383 mg/dL (70-99) 317 mg/dL (70-99) White Blood Count 14.4 x10^3/uL (4.0-11.0) Red Blood Count 3.84 x10^6/uL (4.30-5.70) Hemoglobin 11.8 g/dL (13.0-17.5) Hematocrit 34.8 % (39.0-53.0) Mean Corpuscular Volume 91 fL (79-100) Mean Corpuscular Hemoglobin 31 pg (25-35) Mean Corpuscular Hemoglobin Concent 34 g/dL (31-37) Red Cell Distribution Width 12.7 % (11.5-14.5) Platelet Count 301 x10^3/uL (140-400) Neutrophils (%) (Auto) 73 % (31-73) Lymphocytes (%) (Auto) 18 % (24-48) Monocytes (%) (Auto) 7 % (0-9) Eosinophils (%) (Auto) 2 % (0-3) Basophils (%) (Auto) 0 % (0-3) Neutrophils # (Auto) 10.4 x10^3/uL (1.8-7.7) Lymphocytes # (Auto) 2.6 x10^3/uL (1.0-4.8) Monocytes # (Auto) 1.1 x10^3/uL (0.0-1.1) Eosinophils # (Auto) 0.2 x10^3/uL (0.0-0.7) Basophils # (Auto) 0.0 x10^3/uL (0.0-0.2) Creatinine 0.9 mg/dL (0.7-1.3) Estimated GFR (Cockcroft-Gault) 91.3 Test 01/29/21 11:41 Glucose (Fingerstick) 335 mg/dL (70-99) Assessment and Plan Assessmemt and Plan Problems Medical Problems: (1) Cellulitis Status: Acute (2) Hyperglycemia Status: Acute Right lower extremity cellulitis, type 2 diabetes with long-term insulin use, hypertension, hyperlipidemia -Patient labs and presentation consistent with bacterial cellulitis -Duplex in emergency room negative for clot -Patient started on vancomycin emergency room; infectious disease consulted recommending Rocephin and Zyvox; blood cultures pending -Foot check performed on patient does not show any wounds, unknown known source of infection -Starting patient on long-acting, sliding scale and premeal insulin. -He is due to establish with a PCP next week -Home medications resumed as indicated -DVT prophylaxis Comment Review of Relevant I have reviewed the following items sebastián (where applicable) has been applied. Medications: Current Medications Medications (Trade) Dose Ordered Sig/Mykel Route PRN Reason Start Time Stop Time Status Last Admin Dose Admin Atorvastatin Calcium (Lipitor) 40 mg HS PO 01/28/21 21:00 01/28/21 20:01 Lisinopril (Prinivil) 20 mg DAILY PO 01/29/21 09:00 01/29/21 15:37 DC 01/29/21 09:12 Pantoprazole Sodium (Protonix) 40 mg DAILYAC PO 01/29/21 07:30 01/29/21 05:20 Insulin Glargine (Lantus Syringe) 20 unit QHS SQ 01/28/21 21:00 01/29/21 13:22 DC 01/28/21 20:30 Insulin Human Lispro (HumaLOG) 15 units TIDWMEALS SQ 01/29/21 08:00 01/29/21 13:22 DC 01/29/21 12:34 Lisinopril (Prinivil) 20 mg 1X ONCE PO 01/29/21 16:15 01/29/21 16:16 DC 01/29/21 16:11 Justifications for Admission Other Justification BOO BAL MD Jan 29, 2021 16:19
--- NOTE | 2021-01-29 18:18 | NUR ---
Patient transferred to 4N to room 412 today and Carrie was the nurse taking report.
[2021-01-29 19:15] VITALS: BP 161/83
[2021-01-29] MEDS: ATORVASTATIN CALCIUM 40 MG TABLET. PO SCH (20:57)
[2021-01-29] MEDS ORDERED: INSULIN GLARGINE SYRINGE. SQ SCH (21:00)
[2021-01-29] MEDS: hydrALAZINE 20 MG/ML VIAL. IVP PRN (23:24)
[2021-01-29 23:32] VITALS: BP 169/78
[2021-01-30 01:11] LABS: HEMOGLOBIN A1C 13.4 % (4.8-5.6)
[2021-01-30 03:06] VITALS: BP 160/80
[2021-01-30 07:00] VITALS: BP 178/86
--- NOTE | 2021-01-30 07:55 | PDOC ---
Infectious Disease Note Subjective Subjective Patient is feeling better ROS ROS No nausea vomiting diarrhea pain is improving no fever Vital Sign Vital Signs Vital Signs Date Time Temp Pulse Resp B/P (MAP) Pulse Ox O2 Delivery O2 Flow Rate FiO2 01/30/21 03:06 97.8 80 16 160/80 (106) 92 Room Air 97.8 Physical Exam PHYSICAL EXAM GENERAL: Alert, oriented gentleman, not in distress. VITAL SIGNS: As above HEENT: Both pupils are round and reacting. No conjunctival lesion, no lesion in the mouth. NECK: Supple, no JVP, no lymphadenopathy. LUNGS: Clear. HEART: S1, S2 regular. ABDOMEN: Soft, nontender, no organomegaly. EXTREMITIES: Right lower extremity, very faint redness present, almost gone. He does have a large lump into the right inguinal area, which is tender. There is redness there. There is no open area. NEUROLOGIC: The patient is alert, awake, and appropriate. No focal neurologic deficit. Labs Lab Laboratory Tests Test 01/29/21 11:41 01/29/21 16:34 01/29/21 20:56 Glucose (Fingerstick) 335 mg/dL (70-99) 280 mg/dL (70-99) 246 mg/dL (70-99) Micro Microbiology 01/27/21 Blood Culture - Preliminary, Resulted NO GROWTH AFTER 1 DAY Objective Assessment IMPRESSION: 1. Right lower extremity cellulitis. 2. Right inguinal lymphadenopathy. This lump is too large for this lymph node to be there, although ultrasound suggests that his lymph node, we will treat as it is. 3. Diabetes. 4. Hypertension. 5. Leukocytosis. 6. Fever. Plan Plan of Care Continue antibiotics Check CBC PT OT Repeat ultrasound of the right leg attention thigh to rule out formation of abscess ANGELINE CHAMBERS MD Jan 30, 2021 07:55
[2021-01-30] MEDS: PANTOPRAZOLE 40 MG TABLET.DR. PO SCH (08:35)
[2021-01-30] MEDS: LINEZOLID 600 MG TABLET PO SCH ×2 (08:35→21:08)
[2021-01-30] MEDS: LACTOBACILLUS RHAMNOSUS GG 1 CAPSULE. PO SCH ×2 (08:36→21:08)
[2021-01-30] MEDS: oxyCODONE/APAP 5/325 1 TAB TABLET PO PRN ×3 (08:36→21:09)
[2021-01-30] MEDS: LISINOPRIL 20 MG TABLET PO SCH (08:37)
[2021-01-30] MEDS: hydrALAZINE 20 MG/ML VIAL. IVP PRN (08:38)
[2021-01-30] MEDS: INSULIN LISPRO 300 UNITS/3 ML VIAL. SQ SCH ×6 (08:45→17:48)
--- NOTE | 2021-01-30 09:24 | PDOC ---
[employer] PROGRESS NOTE Date of Service DOS: DATE: 01/30/21 TIME: 09:10 Chief Complaint Chief Complaint Right lower extremity cellulitis type 2 diabetes hypertension hyperlipidemia History of Present Illness History of Present Illness Patient is a 45-year-old white male who presented to the emergency room overnight to right groin and thigh pain and erythema. 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 About 2 weeks ago noticed pain and redness in his right lower extremity. He was also having cough around the then. Went to an urgent care was diagnosed with cellulitis and treated with Keflex. Negative for Covid and influenza during that visit according to the patient. Initially improved with the Keflex. However about 3 to 5 days ago he started having swelling in his right groin. It worsened over the next few days and he was in the emergency room overnight. He was diagnosed with cellulitis and started on IV antibiotics. Patient has a history of type 2 diabetes. Due to losing his insurance he has not regularly seen a doctor over the past 2 years. He would by NPH from [facility] to try to keep up the sugars but said they still frequently ran in the 300s. Does endorse neuropathy. Does perform foot checks and no wounds that he has ever noticed. 01/29: Patient evaluated at bedside. Still complaining of some pain in his right groin but says it is improving. Swelling improved as well. Tolerating antibiotics bedside chair continuing for now. Infectious disease following. Transition to oral antibiotics when able. Patient agreeable with plan. 01/30: Patient seen and examined. Discussed with RN. Chart reviewed. Patient sitting up in NAD. Denies nausea, vomiting, and pain. Afebrile. On examination, right inguinal lymph node was erythematous, hard, and nontender to palpation. Discussed with Dr. Tucker. Follow up ultrasound indicated to confirm if groin swelling is a lymph node or an abscess. WBC count trended down (14.4). Hemoglobin A1C is 13.4. Vitals/I&O Vitals/I&O: Vital Signs Date Time Temp Pulse Resp B/P (MAP) Pulse Ox O2 Delivery O2 Flow Rate FiO2 01/30/21 08:38 85 178/86 01/30/21 08:36 Room Air 01/30/21 03:06 97.8 16 92 97.8 I & O 01/29/21 01/29/21 01/30/21 15:00 23:00 07:00 Intake Total 320 ml 500 ml 400 ml Output Total 350 ml Balance 320 ml 500 ml 50 ml Physical Exam Physical Exam: GENERAL: Alert, oriented gentleman, not in distress. VITAL SIGNS: As above HEENT: Both pupils are round and reacting. No conjunctival lesion, no lesion in the mouth. NECK: Supple, no JVP, no lymphadenopathy. LUNGS: Clear. HEART: S1, S2 regular. ABDOMEN: Soft, nontender, no organomegaly. EXTREMITIES: Right lower extremity, very faint redness present, almost gone. He does have a large lump into the right inguinal area, which is tender. There is redness there. There is no open area. NEUROLOGIC: The patient is alert, awake, and appropriate. No focal neurologic deficit. General: Alert, Oriented X3, Cooperative Heart: Regular rate, Normal S1, Normal S2 Lungs: Clear Abdomen: Normal bowel sounds, Soft Extremities: Other (Right groin with large tender immobile mass, very tender to palpation erythematous) Skin: No rashes, No significant lesion Labs Labs: Laboratory Tests Test 01/29/21 11:41 01/29/21 16:34 01/29/21 20:56 01/30/21 08:08 Glucose (Fingerstick) 335 mg/dL (70-99) 280 mg/dL (70-99) 246 mg/dL (70-99) 301 mg/dL (70-99) Review of Systems Review of Systems: Denies changes in weight. Denies dizziness. Assessment and Plan Assessmemt and Plan Problems Medical Problems: (1) Cellulitis Status: Acute (2) Hyperglycemia Status: Acute Assessment: Right lower extremity cellulitis type 2 diabetes hypertension hyperlipidemia Plan: 1. Continue antibiotics (linezolid, ceftriaxone) 2. Await follow up ultrasound of right groin region 3. Appreciate Infectious disease input 4. PRN pain meds 5. Trend labs 6. Continue long-acting, sliding scale and premeal insulin. 7. Home medications 8. PT/OT 9. Encourage PO intake 10. Full code Comment Review of Relevant I have reviewed the following items sebastián (where applicable) has been applied. Medications: Current Medications Medications (Trade) Dose Ordered Sig/Mykel Route PRN Reason Start Time Stop Time Status Last Admin Dose Admin Insulin Glargine (Lantus Syringe) 30 unit QHS SQ 01/29/21 21:00 01/29/21 21:03 Insulin Human Lispro (HumaLOG) 20 units TIDWMEALS SQ 01/29/21 17:00 01/30/21 08:45 Lisinopril (Prinivil) 40 mg DAILY PO 01/30/21 09:00 01/30/21 08:37 Hydralazine HCl (Apresoline Inj) 10 mg PRN Q4HRS PRN IVP ELEVATED BP, SEE COMMENTS 01/29/21 15:45 01/30/21 08:38 Lisinopril (Prinivil) 20 mg 1X ONCE PO 01/29/21 16:15 01/29/21 16:16 DC 01/29/21 16:11 Justifications for Admission Other Justification ZOHREH GODRON III DO Jan 30, 2021 09:24
[2021-01-30] MEDS: cefTRIAXone IV Push 2 GM VIAL. IVP SCH (10:03)
[2021-01-30 11:00] VITALS: BP 168/83
[2021-01-30 15:01] VITALS: BP 149/68
[2021-01-30 19:00] VITALS: BP 155/73
[2021-01-30] MEDS: ATORVASTATIN CALCIUM 40 MG TABLET. PO SCH (21:08)
[2021-01-30] MEDS: INSULIN GLARGINE SYRINGE. SQ SCH (21:13)
[2021-01-30 23:00] VITALS: BP 164/81
[2021-01-31 03:00] VITALS: BP 167/60
[2021-01-31] MEDS: oxyCODONE/APAP 5/325 1 TAB TABLET PO PRN ×3 (06:30→20:21)
[2021-01-31 07:00] VITALS: BP 171/86
--- NOTE | 2021-01-31 08:15 | RAD ---
INDICATION: Reason: Right groin lump, rule out abscess / Spl. Instructions: / History: COMPARISON: January 27, 2021 ultrasound of the legs FINDINGS: Focused ultrasound images were obtained of the right groin and thigh soft tissues. There is a mildly prominent lymph node identified measuring 28 x 8 mm within the soft tissues of the right groin. Irregular hypoechoic structure seen within the subcutaneous soft tissues at the right mid thigh measu ring 21 x 10 mm. Edema of the adjacent soft tissues. IMPRESSION: * Within the right mid thigh soft tissues there is an irregular hypoechoic structure seen within th e subcutaneous fat. Could be from complex fluid collection such as abscess or hematoma but follow-up could be obtained to ensure that this appropriately resolves. Prominent lymph node in the right groin which could be reactive. Electronically signed by: Freddy Choudhury MD (01/31/2021 8:12 AM) [id number]
[2021-01-31] MEDS: LINEZOLID 600 MG TABLET PO SCH ×2 (08:21→21:06)
[2021-01-31] MEDS: PANTOPRAZOLE 40 MG TABLET.DR. PO SCH (08:21)
[2021-01-31] MEDS: LISINOPRIL 20 MG TABLET PO SCH (08:21)
[2021-01-31] MEDS: LACTOBACILLUS RHAMNOSUS GG 1 CAPSULE. PO SCH ×2 (08:21→21:06)
[2021-01-31] MEDS: cefTRIAXone IV Push 2 GM VIAL. IVP SCH (08:22)
[2021-01-31] MEDS: INSULIN LISPRO 300 UNITS/3 ML VIAL. SQ SCH ×6 (08:27→17:55)
--- NOTE | 2021-01-31 08:43 | PDOC ---
Infectious Disease Note Subjective Subjective Patient is feeling better ROS ROS Pain is improving no nausea vomiting diarrhea or fever Vital Sign Vital Signs Vital Signs Date Time Temp Pulse Resp B/P (MAP) Pulse Ox O2 Delivery O2 Flow Rate FiO2 01/31/21 08:21 79 171/86 01/31/21 07:18 14 92 Room Air 01/31/21 07:00 98.2 98.2 Physical Exam PHYSICAL EXAM GENERAL: Alert, oriented gentleman, not in distress. VITAL SIGNS: As above HEENT: Both pupils are round and reacting. No conjunctival lesion, no lesion in the mouth. NECK: Supple, no JVP, no lymphadenopathy. LUNGS: Clear. HEART: S1, S2 regular. ABDOMEN: Soft, nontender, no organomegaly. EXTREMITIES: Right lower extremity, very faint redness present, almost gone. He does have a large lump into the right inguinal area, which is tender. There is redness there. There is 2 areas that looks like pus pocket that ready to open NEUROLOGIC: The patient is alert, awake, and appropriate. No focal neurologic deficit. Labs Lab Laboratory Tests Test 01/30/21 12:04 01/30/21 17:29 01/31/21 07:50 Glucose (Fingerstick) 304 mg/dL (70-99) 327 mg/dL (70-99) 318 mg/dL (70-99) Micro Microbiology 01/27/21 Blood Culture - Preliminary, Resulted NO GROWTH AFTER 1 DAY Objective Assessment IMPRESSION: 1. Right lower extremity cellulitis. 2. Right inguinal lymphadenopathy. This lump is too large for this lymph node to be there, although ultrasound suggests that his lymph node, we will treat as it is. 3. Diabetes. 4. Hypertension. 5. Leukocytosis. 6. Fever. Plan Plan of Care Continue antibiotics Check CBC PT OT Repeat ultrasound of the right leg looks like forming abscess Consult surgery ANGELINE CHAMBERS MD Jan 31, 2021 08:43
--- NOTE | 2021-01-31 10:07 | NUR ---
SW following. Discussed with RN, pt from home with family, room air, ada diet. Continue abx per ID. SW will continue to follow.
--- NOTE | 2021-01-31 10:43 | PDOC ---
[employer] PROGRESS NOTE Date of Service DOS: DATE: 01/31/21 TIME: 10:32 Chief Complaint Chief Complaint Right lower extremity cellulitis type 2 diabetes hypertension hyperlipidemia History of Present Illness History of Present Illness Patient is a 45-year-old white male who presented to the emergency room overnight to right groin and thigh pain and erythema. 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 About 2 weeks ago noticed pain and redness in his right lower extremity. He was also having cough around the then. Went to an urgent care was diagnosed with cellulitis and treated with Keflex. Negative for Covid and influenza during that visit according to the patient. Initially improved with the Keflex. However about 3 to 5 days ago he started having swelling in his right groin. It worsened over the next few days and he was in the emergency room overnight. He was diagnosed with cellulitis and started on IV antibiotics. Patient has a history of type 2 diabetes. Due to losing his insurance he has not regularly seen a doctor over the past 2 years. He would by NPH from [facility] to try to keep up the sugars but said they still frequently ran in the 300s. Does endorse neuropathy. Does perform foot checks and no wounds that he has ever noticed. 01/29: Patient evaluated at bedside. Still complaining of some pain in his right groin but says it is improving. Swelling improved as well. Tolerating antibiotics bedside chair continuing for now. Infectious disease following. Transition to oral antibiotics when able. Patient agreeable with plan. 01/30: Patient seen and examined. Discussed with RN. Chart reviewed. Patient sitting up in NAD. Denies nausea, vomiting, and pain. Afebrile. On examination, right inguinal lymph node was erythematous, hard, and nontender to palpation. Discussed with Dr. Tucker. Follow up ultrasound indicated to confirm if groin swelling is a lymph node or an abscess. WBC count trended down (14.4). Hemoglobin A1C is 13.4. 01/31: Patient seen and examined. Patient awake, alert, and in no NAD. Denies nausea, vomiting, and diarrhea. Afebrile. On examination, right groin lesion opened with superficial drainage. Discussed with Dr. Tucker. Surgery consulted. . Vitals/I&O Vitals/I&O: Vital Signs Date Time Temp Pulse Resp B/P (MAP) Pulse Ox O2 Delivery O2 Flow Rate FiO2 01/31/21 08:21 79 171/86 01/31/21 07:40 Room Air 01/31/21 07:18 14 92 01/31/21 07:00 98.2 98.2 l I & O 01/30/21 01/30/21 01/31/21 15:00 23:00 07:00 Intake Total 1500 ml 0 ml Balance 1500 ml 0 ml Physical Exam Physical Exam: GENERAL: Alert, oriented gentleman, not in distress. VITAL SIGNS: As above HEENT: Both pupils are round and reacting. No conjunctival lesion, no lesion in the mouth. NECK: Supple, no JVP, no lymphadenopathy. LUNGS: Clear. HEART: S1, S2 regular. ABDOMEN: Soft, nontender, no organomegaly. EXTREMITIES: Right lower extremity, very faint redness present, almost gone. He does have a large lump into the right inguinal area, which is tender. There is redness there. There is 2 areas that looks like pus pocket that ready to open NEUROLOGIC: The patient is alert, awake, and appropriate. No focal neurologic deficit. General: Alert, Oriented X3, Cooperative Heart: Regular rate, Normal S1, Normal S2 Lungs: Clear Abdomen: Normal bowel sounds, Soft Extremities: Other (Right groin with large tender immobile mass, very tender to palpation erythematous) Skin: No rashes, No significant lesion Labs Labs: Laboratory Tests Test 01/30/21 12:04 01/30/21 17:29 01/31/21 07:50 Glucose (Fingerstick) 304 mg/dL (70-99) 327 mg/dL (70-99) 318 mg/dL (70-99) Review of Systems Review of Systems: Denies changes in appetite. Denies blurry vision. Assessment and Plan Assessmemt and Plan Problems Medical Problems: (1) Cellulitis Status: Acute (2) Hyperglycemia Status: Acute Assessment: Right lower extremity cellulitis type 2 diabetes hypertension hyperlipidemia Plan: 1. Wound care 2. Continue antibiotics (linezolid, ceftriaxone) 3. Appreciate Infectious disease input 4. Consult surgery for drainage of abscess 5. PRN pain meds 6. Trend labs 7. Home medications 8. PT/OT 9. Encourage PO intake 10. Full code Comment Review of Relevant I have reviewed the following items sebastián (where applicable) has been applied. Medications: Current Medications Medications (Trade) Dose Ordered Sig/Mykel Route PRN Reason Start Time Stop Time Status Last Admin Dose Admin Insulin Glargine (Lantus Syringe) 40 unit QHS SQ 01/30/21 21:00 01/30/21 21:13 Justifications for Admission Other Justification ZOHREH GORDON III DO Jan 31, 2021 10:43
[2021-01-31 11:00] VITALS: BP 145/80
--- NOTE | 2021-01-31 11:30 | PDOC2 ---
CONSULT Date of Consult Date of Consult DATE: 01/31/21 TIME: 11:26 Reason for Consult Reason for Consult: Right thigh abscess Referring Physician Referring Physician: Dong Identification/Chief Complaint Chief Complaint Right lower extremity pain and swelling Source Source: Chart review, Patient History of Present Illness Reason for Visit: 45-year-old male who was treated urgent care for a right lower extremity cellulitis approximately a week ago since that time is developed more swelling in the right upper thigh as well as groin. Imaging shows large reactive right groin lymph node as well as a 2 x 1 cm fluid collection right mid thigh. Past Medical History Cardiovascular: HTN Pulmonary: No pertinent hx GI: GERD Heme/Onc: No pertinent hx Hepatobiliary: No pertinent hx Psych: No pertinent hx Rheumatologic: No pertinent hx Infectious disease: No pertinent hx ENT: No pertinent hx Renal/: No pertinent hx Endocrine: Diabetes Past Surgical History Past Surgical History: Cholecystectomy Family History Family History: No Significant Social History ALCOHOL: none Lives: Alone Current Problem List Problem List Problems Medical Problems: (1) Cellulitis Status: Acute (2) Hyperglycemia Status: Acute Current Medications Current Medications Current Medications Vancomycin HCl (Vanco Per Pharmacy) 1 each 1X ONCE MC ; Start 01/27/21 at 16:00; Stop 01/27/21 at 16:01; Status DC Sodium Chloride 1,000 ml @ 1,000 mls/hr Q1H IV Last administered on 01/27/21at 16:28; Start 01/27/21 at 16:00; Stop 01/27/21 at 16:59; Status DC Vancomycin HCl 2 gm/Sodium Chloride 500 ml @ 250 mls/hr 1X ONCE IV Last administered on 01/27/21at 16:28; Start 01/27/21 at 16:30; Stop 01/27/21 at 18:29; Status DC Insulin Human Regular (HumuLIN R VIAL) 10 unit 1X ONCE IV Last administered on 01/27/21at 17:25; Start 01/27/21 at 17:00; Stop 01/27/21 at 17:09; Status DC Ondansetron HCl (Zofran) 4 mg PRN Q8HRS PRN IVP NAUSEA/VOMITING; Start 01/27/21 at 17:30; Stop 01/28/21 at 17:29; Status DC Fentanyl Citrate (Fentanyl 2ml Vial) 50 mcg PRN Q1HR PRN IVP PAIN Last administered on 01/28/21at 12:32; Start 01/27/21 at 17:30; Stop 01/28/21 at 13:41; Status DC Acetaminophen (Tylenol) 650 mg PRN Q4HRS PRN PO FEVER > 100.3'F; Start 01/27/21 at 17:30; Stop 01/28/21 at 17:29; Status DC Insulin Human Lispro (HumaLOG) 0-5 UNITS QIDACHS SQ Last administered on 01/27/21at 21:13; Start 01/27/21 at 21:00; Stop 01/28/21 at 11:22; Status DC Dextrose (Dextrose 50%-Water Syringe) 12.5 gm PRN Q15MIN PRN IV SEE COMMENTS; Start 01/27/21 at 20:45; Stop 01/28/21 at 11:22; Status DC Vancomycin HCl 2 gm/Sodium Chloride 500 ml @ 250 mls/hr Q12H IV Last administered on 01/28/21at 03:27; Start 01/28/21 at 04:30; Stop 01/28/21 at 08:16; Status DC Vancomycin HCl (Vancomycin Trough Level) 1 each 1X ONCE MC ; Start 01/29/21 at 16:00; Stop 01/29/21 at 16:01; Status Cancel Vancomycin HCl (Vanco Per Pharmacy) 1 each PRN DAILY PRN MC SEE COMMENTS Last administered on 01/28/21at 01:16; Start 01/27/21 at 23:45; Stop 01/28/21 at 08:21; Status DC Lactobacillus Rhamnosus (Culturelle) 1 cap BID PO Last administered on 01/31/21at 08:21; Start 01/28/21 at 09:00 Ceftriaxone Sodium (Rocephin) 2 gm Q24H IVP Last administered on 01/31/21at 08:22; Start 01/28/21 at 09:00 Linezolid (Zyvox) 600 mg BID PO Last administered on 01/31/21at 08:21; Start 01/28/21 at 09:00 Insulin Human Lispro (HumaLOG) 10 units 1X ONCE SQ Last administered on 01/28/21at 08:48; Start 01/28/21 at 08:45; Stop 01/28/21 at 08:46; Status DC Atorvastatin Calcium (Lipitor) 40 mg HS PO Last administered on 01/30/21at 21:08; Start 01/28/21 at 21:00 Lisinopril (Prinivil) 20 mg DAILY PO Last administered on 01/29/21at 09:12; Start 01/29/21 at 09:00; Stop 01/29/21 at 15:37; Status DC Pantoprazole Sodium (Protonix) 40 mg DAILYAC PO Last administered on 01/31/21at 08:21; Start 01/29/21 at 07:30 Insulin Glargine (Lantus Syringe) 20 unit QHS SQ Last administered on 01/28/21at 20:30; Start 01/28/21 at 21:00; Stop 01/29/21 at 13:22; Status DC Insulin Human Lispro (HumaLOG) 0-9 UNITS TIDWMEALS SQ Last administered on 01/31/21at 08:27; Start 01/28/21 at 12:00 Dextrose (Dextrose 50%-Water Syringe) 12.5 gm PRN Q15MIN PRN IV SEE COMMENTS; Start 01/28/21 at 11:30 Insulin Human Lispro (HumaLOG) 10 units TIDWMEALS SQ Last administered on 01/28/21at 17:23; Start 01/28/21 at 12:00; Stop 01/28/21 at 20:39; Status DC Morphine Sulfate (Morphine Sulfate) 2 mg 1X ONCE IVP Last administered on 01/28/21at 16:28; Start 01/28/21 at 16:15; Stop 01/28/21 at 16:16; Status DC Oxycodone/ Acetaminophen (Percocet 5/325) 1 tab PRN Q4HRS PRN PO MILD PAIN 1-3; Start 01/28/21 at 16:15 Oxycodone/ Acetaminophen (Percocet 5/325) 2 tab PRN Q4HRS PRN PO MODERATE- SEVERE PAIN Last administered on 01/31/21at 06:30; Start 01/28/21 at 16:15 Insulin Human Lispro (HumaLOG) 15 units TIDWMEALS SQ Last administered on 01/29/21at 12:34; Start 01/29/21 at 08:00; Stop 01/29/21 at 13:22; Status DC Insulin Glargine (Lantus Syringe) 30 unit QHS SQ Last administered on 01/29/21at 21:03; Start 01/29/21 at 21:00; Stop 01/30/21 at 18:24; Status DC Insulin Human Lispro (HumaLOG) 20 units TIDWMEALS SQ Last administered on 01/31/21at 08:27; Start 01/29/21 at 17:00 Lisinopril (Prinivil) 40 mg DAILY PO Last administered on 01/31/21at 08:21; Start 01/30/21 at 09:00 Lisinopril (Prinivil) 20 mg 1X PO ; Start 01/29/21 at 15:45; Stop 01/29/21 at 16:07; Status DC Hydralazine HCl (Apresoline Inj) 10 mg PRN Q4HRS PRN IVP ELEVATED BP, SEE COMMENTS Last administered on 01/30/21at 08:38; Start 01/29/21 at 15:45 Lisinopril (Prinivil) 20 mg 1X ONCE PO Last administered on 01/29/21at 16:11; Start 01/29/21 at 16:15; Stop 01/29/21 at 16:16; Status DC Insulin Glargine (Lantus Syringe) 40 unit QHS SQ Last administered on 01/30/21at 21:13; Start 01/30/21 at 21:00 Active Scripts Active Reported Omeprazole 20 Mg Capsule.dr 20 Mg PO DAILY07 Atorvastatin Calcium 40 Mg Tablet 40 Mg PO HS Lisinopril 20 Mg Tablet 20 Mg PO DAILY Metformin Hcl 1,000 Mg Tablet 1,000 Mg PO BID Glyburide 5 Mg Tablet 4 Mg PO DAILY08 Novolog Flexpen (Insulin Aspart) 100 Unit/1 Ml Insuln.pen 100 Unit SQ BIDBFRMEAL PRN Novolog Flexpen (Insulin Aspart) 100 Unit/1 Ml Insuln.pen 100 Unit SQ BIDBFRMEAL PRN Allergies Allergies: Coded Allergies: Penicillins (Verified Allergy, Intermediate, rash, 01/27/21) ROS Musculoskeletal: Yes Pain In: (Right lower extremity), Yes Swelling In: (Right lower extremity) Physical Exam General: Alert, Oriented X3, Cooperative, mild distress HEENT: Atraumatic, EOMI Lungs: Clear to auscultation, Normal air movement Heart: Regular rate, No murmurs Abdomen: Normal bowel sounds, Soft, No tenderness Extremities: Other (Edema of the right lower extremity cellulitic area mid thigh with erythema blistering mid thigh over the area where fluid collection was imaged) Neuro: Normal speech Psych/Mental Status: Mental status NL Vitals VITALS Vital Signs Date Time Temp Pulse Resp B/P (MAP) Pulse Ox O2 Delivery O2 Flow Rate FiO2 01/31/21 08:21 79 171/86 01/31/21 07:40 Room Air 01/31/21 07:18 14 92 01/31/21 07:00 98.2 98.2 Labs Labs Laboratory Tests Test 01/29/21 11:41 01/29/21 16:34 01/29/21 20:56 01/30/21 08:08 Glucose (Fingerstick) 335 mg/dL (70-99) 280 mg/dL (70-99) 246 mg/dL (70-99) 301 mg/dL (70-99) Test 01/30/21 12:04 01/30/21 17:29 01/31/21 07:50 Glucose (Fingerstick) 304 mg/dL (70-99) 327 mg/dL (70-99) 318 mg/dL (70-99) Laboratory Tests Test 01/30/21 12:04 01/30/21 17:29 01/31/21 07:50 Glucose (Fingerstick) 304 mg/dL (70-99) 327 mg/dL (70-99) 318 mg/dL (70-99) Assessment/Plan Assessment/Plan Right thigh cellulitis with abscess plan incision and drainage 02/01 MARCIAL KAPLAN MD Jan 31, 2021 11:30
[2021-01-31 15:00] VITALS: BP 167/81
[2021-01-31 19:10] VITALS: BP 158/78
[2021-01-31] MEDS: ATORVASTATIN CALCIUM 40 MG TABLET. PO SCH (21:07)
[2021-01-31] MEDS: INSULIN GLARGINE SYRINGE. SQ SCH (21:10)
[2021-01-31 22:46] VITALS: BP 143/97
[2021-02-01 02:49] VITALS: BP 173/87
[2021-02-01] MEDS ORDERED: fentaNYL PF VIAL 100 MCG/2 ML VIAL IVP PRN ×2 (06:00)
[2021-02-01] MEDS ORDERED: IV RINGERS,LACTATED 1000ML 1,000 ML IV SCH (06:00)
[2021-02-01] MEDS ORDERED: MORPHINE SULFATE 2 MG/ML INJ. IVP PRN (06:00)
[2021-02-01] MEDS ORDERED: PROCHLORPERAZINE 10 MG/2 ML VIAL. IVP PRN (06:00)
[2021-02-01] MEDS ORDERED: HYDROmorphone 2 MG/ML VIAL IVP PRN (06:00)
[2021-02-01 07:00] VITALS: BP 177/90
[2021-02-01] MEDS: hydrALAZINE 20 MG/ML VIAL. IVP PRN (07:55)
[2021-02-01] MEDS ORDERED: PROPOFOL 10 MG/ML (20ML) VIAL. IV ONE ×2 (08:09→09:03)
[2021-02-01] MEDS ORDERED: LIDOCAINE 2% PF 5 ML VIAL. ONE (08:09)
[2021-02-01] MEDS ORDERED: ONDANSETRON PF 4 MG/2 ML VIAL. ONE (08:10)
[2021-02-01] MEDS ORDERED: DEXAMETHASONE SOD PHOS 4 MG/ML VIAL ONE (08:10)
[2021-02-01] MEDS ORDERED: fentaNYL PF VIAL 100 MCG/2 ML VIAL ONE (08:10)
[2021-02-01] MEDS: INSULIN LISPRO 300 UNITS/3 ML VIAL. SQ SCH ×4 (08:24→13:00)
[2021-02-01] MEDS ORDERED: INSULIN LISPRO 100 UNIT/ML 3ML VIAL for OP,RR ONLY. SQ PRN (08:30)
[2021-02-01] MEDS ORDERED: BUPIVACAINE-EPI 0.25%-1:200000 MPF 30 ML VIAL. ONE (08:58)
--- NOTE | 2021-02-01 09:00 | PDOC ---
Infectious Disease Note Subjective Subjective Patient is feeling better, going for surgery ROS ROS No nausea vomiting diarrhea Vital Sign Vital Signs Vital Signs Date Time Temp Pulse Resp B/P (MAP) Pulse Ox O2 Delivery O2 Flow Rate FiO2 02/01/21 08:37 97.8 78 16 170/78 96 Room Air 97.8 Physical Exam PHYSICAL EXAM GENERAL: Alert, oriented gentleman, not in distress. VITAL SIGNS: As above HEENT: Both pupils are round and reacting. No conjunctival lesion, no lesion in the mouth. NECK: Supple, no JVP, no lymphadenopathy. LUNGS: Clear. HEART: S1, S2 regular. ABDOMEN: Soft, nontender, no organomegaly. EXTREMITIES: Right lower extremity, very faint redness present, almost gone. He does have a large lump into the right inguinal area, which is tender. There is redness there. There is 2 areas that looks like pus pocket that ready to open NEUROLOGIC: The patient is alert, awake, and appropriate. No focal neurologic deficit. Labs Lab Laboratory Tests Test 01/31/21 11:53 01/31/21 17:11 01/31/21 20:51 02/01/21 07:53 Glucose (Fingerstick) 245 mg/dL (70-99) 225 mg/dL (70-99) 309 mg/dL (70-99) 294 mg/dL (70-99) Micro Microbiology 01/27/21 Blood Culture - Preliminary, Resulted NO GROWTH AFTER 1 DAY Objective Assessment IMPRESSION: 1. Right lower extremity cellulitis. 2. Right inguinal lymphadenopathy. This lump is too large for this lymph node to be there, although ultrasound suggests that his lymph node, we will treat as it is. 3. Diabetes. 4. Hypertension. 5. Leukocytosis. 6. Fever. Plan Plan of Care Continue antibiotics Check CBC PT OT I&D today Patient wants to get out today to be able to go back to work tomorrow All the cultures are not going to be available and we do not know how we comes out after surgery ANGELINE CHAMBERS MD Feb 01, 2021 09:00
[2021-02-01] MEDS ORDERED: KETOROLAC 30 MG/ML VIAL. ONE (09:03)
[2021-02-01] MEDS ORDERED: SEVOFLURANE 31 TO 60 MINUTES. IH ONE (09:04)
--- NOTE | 2021-02-01 09:06 | PDOC4 ---
Operative Note Operative Note Date: February [id number] at 904 Preoperative diagnosis abscess right thigh Postoperative diagnosis: Same Procedure: Incision and drainage right thigh abscess Surgeon: Baljinder Specimen: Cultures Dictation: Patient is a 45-year-old male diabetic with a cellulitis of his right thigh and abscess by ultrasound. Procedure of incision and drainage was explained to the patient detail risk-benefit were also discussed including bleeding infection alternatives to this procedure also discussed with patient who seemed to understand and gave a verbal written consent to have the procedure performed. Patient was taken to the operating room placed in the supine position general anesthesia was initiated once patient was sleeping intubated his right thigh was prepped and draped usual sterile fashion using Betadine scrub and solution. Area over the cellulitic abscess was incised with a 11 blade scalpel purulent material was expressed and this was cultured the wound was then irrigated with copious amounts normal saline and suctioned dry hemostasis was controlled with electrocautery the wound was then packed with quarter inch iodoform Nu Gauze and dressed with 4 x 4's Medipore tape. Patient was awakened extubated in the operating room taken to recovery in stable condition all sponge instrument needle counts listed as correct estimated blood loss 5 mL MARCIAL KAPLAN MD Feb 01, 2021 09:05
[2021-02-01 10:16] VITALS: BP 136/66
--- NOTE | 2021-02-01 10:19 | NUR ---
SW following. Discussed with RN, pt had an I&D this morning. RN advised pt may possibly be able to discharge today. SW awaiting final confirmation. SW will continue to follow.
[2021-02-01] MEDS: oxyCODONE/APAP 5/325 1 TAB TABLET PO PRN (11:13)
[2021-02-01] MEDS: LACTOBACILLUS RHAMNOSUS GG 1 CAPSULE. PO SCH (11:13)
[2021-02-01] MEDS: LINEZOLID 600 MG TABLET PO SCH (11:13)
[2021-02-01] MEDS: PANTOPRAZOLE 40 MG TABLET.DR. PO SCH (11:14)
[2021-02-01] MEDS: LISINOPRIL 20 MG TABLET PO SCH (11:14)
[2021-02-01] MEDS: cefTRIAXone IV Push 2 GM VIAL. IVP SCH (11:15)
[2021-02-01] MEDS ORDERED: OXYC1TAB15 PO (12:18)
--- NOTE | 2021-02-01 12:56 | PDOC ---
[employer] PROGRESS NOTE Date of Service DOS: DATE: 02/01/21 TIME: 12:44 Chief Complaint Chief Complaint Right lower extremity cellulitis type 2 diabetes hypertension hyperlipidemia History of Present Illness History of Present Illness Patient is a 45-year-old white male who presented to the emergency room overnight to right groin and thigh pain and erythema. 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 About 2 weeks ago noticed pain and redness in his right lower extremity. He was also having cough around the then. Went to an urgent care was diagnosed with cellulitis and treated with Keflex. Negative for Covid and influenza during that visit according to the patient. Initially improved with the Keflex. However about 3 to 5 days ago he started having swelling in his right groin. It worsened over the next few days and he was in the emergency room overnight. He was diagnosed with cellulitis and started on IV antibiotics. Patient has a history of type 2 diabetes. Due to losing his insurance he has not regularly seen a doctor over the past 2 years. He would by [facility] from [facility] to try to keep up the sugars but said they still frequently ran in the 300s. Does endorse neuropathy. Does perform foot checks and no wounds that he has ever noticed. 01/29: Patient evaluated at bedside. Still complaining of some pain in his right groin but says it is improving. Swelling improved as well. Tolerating antibiotics bedside chair continuing for now. Infectious disease following. Transition to oral antibiotics when able. Patient agreeable with plan. 01/30: Patient seen and examined. Discussed with RN. Chart reviewed. Patient sitting up in NAD. Denies nausea, vomiting, and pain. Afebrile. On examination, right inguinal lymph node was erythematous, hard, and nontender to palpation. Discussed with Dr. Tucker. Follow up ultrasound indicated to confirm if groin swelling is a lymph node or an abscess. WBC count trended down (14.4). Hemoglobin A1C is 13.4. 01/31: Patient seen and examined. Patient awake, alert, and in NAD. Denies nausea, vomiting, and diarrhea. Afebrile. On examination, right groin lesion opened with superficial drainage. Discussed with Dr. Tucker. Surgery consulted. 02/01: Patient seen and examined. Discussed with RN. Chart reviewed. Patient seen soon after return from surgery. Abscess was drained. Patient was awake, alert, and in NAD. Afebrile. Denied any pain. On examination, wound CDI. Discussed with . Patient may be discharged today if stable. Prescribe home pain medications and antibiotics if discharged. Vitals/I&O Vitals/I&O: Vital Signs Date Time Temp Pulse Resp B/P (MAP) Pulse Ox O2 Delivery O2 Flow Rate FiO2 02/01/21 11:14 78 136/66 02/01/21 11:13 96 Room Air 6.0 02/01/21 10:16 97.7 18 97.7 Physical Exam Physical Exam: GENERAL: Alert, oriented gentleman, not in distress. VITAL SIGNS: As above HEENT: Both pupils are round and reacting. No conjunctival lesion, no lesion in the mouth. NECK: Supple, no JVP, no lymphadenopathy. LUNGS: Clear. HEART: S1, S2 regular. ABDOMEN: Soft, nontender, no organomegaly. EXTREMITIES: Right lower extremity, very faint redness present, almost gone. He does have a large lump into the right inguinal area, which is tender. There is redness there. There is 2 areas that looks like pus pocket that ready to open NEUROLOGIC: The patient is alert, awake, and appropriate. No focal neurologic deficit. General: Alert, Oriented X3, Cooperative, mild distress Heart: Regular rate, No murmurs Lungs: Clear Abdomen: Normal bowel sounds, Soft, No tenderness Extremities: Other (Edema of the right lower extremity cellulitic area mid thigh with erythema blistering mid thigh over the area where fluid collection was imaged) Skin: No rashes, No significant lesion Labs Labs: Laboratory Tests Test 01/31/21 17:11 01/31/21 20:51 02/01/21 07:53 02/01/21 09:11 Glucose (Fingerstick) 225 mg/dL (70-99) 309 mg/dL (70-99) 294 mg/dL (70-99) 313 mg/dL (70-99) Review of Systems Review of Systems: Denies blurry vision. Denies dizziness. Assessment and Plan Assessmemt and Plan Problems Medical Problems: (1) Cellulitis Status: Acute (2) Hyperglycemia Status: Acute Assessment: Right lower extremity cellulitis type 2 diabetes hypertension hyperlipidemia Plan: 1. Continue wound care as directed 2. Continue antibiotics (linezolid, ceftriaxone) 3. Appreciate Infectious disease input 4. Appreciate surgery input 5. PRN pain meds 6. Trend labs 7. Home medications 8. PT/OT 9. Encourage PO intake 10. Full code 11. Discharge today with prescriptions for percocet and levaquin if patient remains stable Comment Review of Relevant I have reviewed the following items sebastián (where applicable) has been applied. Medications: Current Medications Medications (Trade) Dose Ordered Sig/Mykel Route PRN Reason Start Time Stop Time Status Last Admin Dose Admin Ringer's Solution 1,000 ml @ 30 mls/hr Q24H IV 02/01/21 06:00 02/01/21 17:59 02/01/21 08:26 Insulin Human Lispro (HumaLOG VIAL for OP,RR ONLY) 0-10 units PRN Q1HR PRN SQ PER PROTOCOL 02/01/21 08:30 02/02/21 08:29 02/01/21 09:25 Bupivacaine HCl/ Epinephrine Bitart (Sensorcaine-Epi 0.25%-1:[id number] Mpf) 30 ml STK-MED ONCE .ROUTE 02/01/21 08:58 02/01/21 08:59 DC 02/01/21 08:56 Justifications for Admission Other Justification ZOHREH GORDON III DO Feb 01, 2021 12:56
--- NOTE | 2021-02-01 13:47 | DS ---
DATE OF DISCHARGE: 02/01/2021 ADMITTING DIAGNOSIS: Cellulitis. DISCHARGE DIAGNOSES: Postop incision and drainage of right groin abscess, resolving cellulitis, overweight, hypertension, hyperlipidemia, diabetes. CONSULTS: General Surgery and Infectious Disease. PROCEDURES: Incision and drainage of right thigh abscess. HOSPITAL COURSE: The patient is a pleasant middle-aged male who presented with some cellulitis on his right lower extremity and developed a right thigh abscess as well. He was admitted. We gave him IV antibiotics. The above consults were obtained this morning, was taken for incision and drainage of the right thigh abscess. I saw and examined him, he is doing well and wants to go home. I left a prescription for Augmentin and Percocet. DISPOSITION: Home. ACTIVITY: As tolerated. DIET: Low sodium. DISCHARGE MEDICATIONS: Please see the [facility]AD. Percocet 5/325, 1 q.4 hours p.r.n., atorvastatin 40 a day, glimepiride 4 a day. He also gets NovoLog 10 units with meals and lisinopril 20 a day, metformin 1000 b.i.d. and omeprazole 20 a day. TOTAL TIME: 32 minutes. ADILSON/PETER DR: ADILSON/nereida TID: [id number]
[2021-02-01 15:05] VITALS: BP 145/73
--- NOTE | 2021-02-01 17:23 | NUR ---
Discharge Note: SACHI LEBLANC [address] [place] [address] Discharge instructions and discharge home medications reviewed with Patient and a copy given. All questions have been answered and understanding verbalized. The following instructions and handouts were given: diet, activity, medication list and follow up instructions provided to patient. Patient provided with wound care education and supplies to pack wound as directed by Dr. Gale Discontinued lines and drains: Peripheral IV discontinued and catheter intact. Patient discharged to Home or Self Care with Family Member via [facility]
== END 2021-02-01 16:10 | disposition home or self-care (01) | DRG 872 ==
LOC: ER 15:32 → 5 NORTH 17:12 → 4 NORTH 01-29 18:20
PROVIDERS: ADMIT Family Medicine; ATTEND Family Medicine
PROC: 0Y990ZZ Drainage of Right Lower Extremity, Open Approach (ICD-10-PCS; principal; 2021-02-01 09:15)
DX: A41.9 Sepsis, unspecified organism (principal); L03.115 Cellulitis of right lower limb; L02.214 Cutaneous abscess of groin; Z68.41 Body mass index [BMI] 40.0-44.9, adult; L02.415 Cutaneous abscess of right lower limb; E11.65 Type 2 diabetes mellitus with hyperglycemia; E66.3 Overweight; E78.00 Pure hypercholesterolemia, unspecified; E78.5 Hyperlipidemia, unspecified; G62.9 Polyneuropathy, unspecified; I10 Essential (primary) hypertension; I88.9 Nonspecific lymphadenitis, unspecified; X58.XXXA Exposure to other specified factors, initial encounter; Y93.72 Activity, wrestling; Z20.822 Contact with and (suspected) exposure to COVID-19; Z79.4 Long term (current) use of insulin; E66.9 Obesity, unspecified; K21.9 Gastro-esophageal reflux disease without esophagitis; Z88.0 Allergy status to penicillin
CPT/HCPCS: 36415; 36600; 71045; 76882; 80053; 82010; 82565; 82805; 82962; 83036; 83605; 84484; 85007; 85025; 85651; 86140; 87040; 87071; 87075; 87426; 93005; 93970; 96365; 96366; 96375; A4930; A6253; A6402; J0360; J0696; J1100; J1815; J1885; J2270; J2405; J2704; J3010; J3370; J3490; J7030; J7040; J7120; U0003; U0005; 99285-25; G0378